=== PATIENT | male | born 1945 | race Caucasian/White ===

== ENCOUNTER 2020-12-25 13:28 | Inpatient (IN) | payer MEDICARE, MEDICAID, SELFPAY ==
--- NOTE | ~2020-12-25 | XR_ITS ---
EXAMINATION: XR CHEST CLINICAL INFORMATION: Syncope COMPARISON: Previous chest x-ray December 2018 TECHNIQUE: 2 views of the chest were obtained. FINDINGS: The cardiac and mediastinal contours are stable. The lung volumes are low. The lungs are clear. There is no pleural effusion or pneumothorax. There are degenerative changes of the spine. Distended bowel below the diaphragm is noted. XR/XR chest 2V IMPRESSION: Low lung volumes. No evidence for acute disease in the chest.
--- NOTE | ~2020-12-25 | CT_ITS ---
EXAMINATION: CT HEAD WITHOUT CONTRAST CLINICAL INFORMATION: Altered mental status COMPARISON: None TECHNIQUE: Contiguous axial imaging was performed from the skull base to vertex without intravenous administration of contrast. This CT examination was performed using dose optimization techniques as appropriate, variously including the following: *Automated exposure control *Adjustment of mA and/or kV according to patient size (this includes techniques or standardized protocols for targeted exams where dose is matched to indication/reason for exam; i.e. extremities or head) *Use of iterative reconstruction technique DLP: 743 mGy-cm FINDINGS: There is no evidence of acute intracranial hemorrhage or territorial infarction. There is a small lacunar infarction right basal ganglia. No abnormal mass effect or midline shift is seen. Griffith to white matter differentiation is well preserved. No extra-axial fluid collections are identified. There is mild prominence of cerebellar sulci and subarachnoid space and moderate prominence of supratentorial subarachnoid space. There is moderate calcification of anterior falx.. The lateral ventricles are symmetrical in size but slightly enlarged. There is no abnormal attenuation within the brain parenchyma. The osseous structures and soft tissues are normal. The mastoid air cells and visualized portions of the paranasal sinuses are well aerated. CT/CT head/brain wo con IMPRESSION: No acute intracranial process seen. Small lacunar infarction right basal ganglia. Mild cerebral and cerebellar volume loss.
--- NOTE | 2020-12-25 13:36 | ECG_ITS ---
Test Reason : SYNCOPE Blood Pressure : / mmHG Vent. Rate : 076 BPM Atrial Rate : 076 BPM P-R Int : 184 ms QRS Dur : 112 ms QT Int : 384 ms P-R-T Axes : 069 014 059 degrees QTc Int : 432 ms Sinus rhythm with Premature atrial complexes Intra-ventricular conduction delay Nonspecific ST abnormality Abnormal ECG When compared with ECG of 04-JAN-2019 18:59, Premature atrial complexes are now Present Nonspecific ST abnormality is new Referred By: Odalys Walsh Electronically Signed By:DRAGAN GUEVARA MD
--- NOTE | 2020-12-25 13:40 | ED.GENADULT ---
HPI - General Adult General Chief complaint: Syncope Stated complaint: ?STROKE Time Seen by Provider: 12/25/20 13:34 Source: patient and EMS Mode of arrival: EMS Limitations: altered mental status (Baseline dementia) History of Present Illness HPI narrative: 75-year-old male with a past medical history dementia, CVA with left-sided deficits and aphasia, seizure disorder on primidone, chronic Nair, hypertension, hyperlipidemia here after a witnessed episode of unresponsiveness by staff at a local [place] [facility] care facility. Per EMS the patient was sitting down when he was noted to be unresponsive for about 1 minutes. There was no reports of shaking activity. Unknown if incontinent as patient has a chronic Nair. Roused without intervention. EMS noted some garbled speech after arousing but feels that this is now resolved. Patient has dementia and cognitive impairment and is unable to provide any history. FUll code Related Data Home Medications Medication Instructions Recorded Confirmed acetaminophen 325 mg tablet 650 mg PO Q4H PRN 12/25/20 12/25/20 aspirin 81 mg chewable tablet 81 mg PO DAILY 12/25/20 12/25/20 atorvastatin 40 mg tablet 40 mg PO BEDTIME 12/25/20 12/25/20 docusate sodium 100 mg tablet 100 mg PO BID 12/25/20 12/25/20 hydrochlorothiazide 25 mg tablet 25 mg PO DAILY 12/25/20 12/25/20 labetalol 300 mg tablet 300 mg PO TID 12/25/20 12/25/20 lisinopril 40 mg tablet 40 mg PO DAILY 12/25/20 12/25/20 magnesium oxide 400 mg PO DAILY 12/25/20 12/25/20 nifedipine 90 mg tablet,extended 90 mg PO DAILY 12/25/20 12/25/20 release 24 hr potassium chloride 20 mEq 20 meq PO BEDTIME 12/25/20 12/25/20 tablet,extended release sennosides 8.6 mg tablet (senna) 17.2 mg PO BEDTIME 12/25/20 12/25/20 spironolactone 50 mg tablet 50 mg PO DAILY 12/25/20 12/25/20 Allergies Allergy/AdvReac Type Severity Reaction Status Date / Time No Known Allergies Allergy Unverified 12/01/19 19:28 [No Known Allergies*] Review of Systems Review of Systems: Yes all other systems are reviewed and are negative and Unobtainable due to mental status (dementi ) Neurologic: Denies Abnormal speech present [facility], [facility] Past Medical History Attestation statement: The following information was validated with the patient. Source: old records reviewed and nursing notes reviewed Medical History Aphasia BPH (benign prostatic hyperplasia) Dysphagia Epilepsy Hemiparesis Hemiplegia Memory deficit Neuromuscular dysfunction of bladder Unsteady gait Vascular dementia Social History Social History Alcohol intake: unknown Patient Tobacco Use Status: Tobacco use Unknown Use of substances other than those prescribed or required for medical reasons: Unknown Advance Directives: No Advance Directives Information Provided: No Physical Exam Vital Signs: Vital Signs: Last Vital Signs Temp 99.5 F 12/25/20 15:04 Pulse 73 12/25/20 15:04 Resp 21 H 12/25/20 15:04 BP 136/59 L 12/25/20 15:04 Pulse Ox 96 12/25/20 15:04 Body Mass Index 37.8 Const: General: alert Orientation/consciousness: oriented to person and oriented to place Limitations: no limitations HENMT: Head: Yes normal to inspection Ears: hearing grossly normal bilaterally and TM's normal bilaterally General nose exam: Normal external nose present Face and sinus: Yes normal facial exam Mouth: Normal oral and palatal mucosa present Throat: Yes posterior oropharynx normal, Yes tonsils normal and Yes uvula midline Eyes: General: appearance normal, both eyes and all related structures Pupils: Equal, round and reactive pupils present Neck: Neck: Yes normal visual inspection Chest: Chest palpation & inspection: normal inspection of the chest Resp: Effort & Inspection: normal respiratory effort Auscultation: clear to auscultation bilaterally Cardio: Rate: regular rate Rhythm: regular rhythm Peripheral pulses: Peripheral pulses 2+ throughout GI: Inspection: Yes normal to inspection Palpation (GI): Soft to palpation and nontender Auscultation: normal bowel sounds Back/Spine/Pelvis: Thoracic/Lumbar Spine: thoracic and lumbar spine normal to inspection Skin: General skin exam: no rashes or lesions noted Neuro: Other: Speech is clear Patient has 5/5 strength in upper extremities. 3/5 strength lower extremities Sensation is intact General: oriented to person, oriented to place, moves all extremities, normal sensation to monofilament and Unable to assess gait (pt non ambulatory at baseline-WC bound ) Cranial nerves: Yes CN's II-XII intact bilaterally, Yes Equal, round and reactive pupils present, Yes Bilaterally intact EOM present, Yes Nystagmus not present, Yes Normal facial strength present and Yes Midline tongue present Speech: No Abnormal speech present Gait exam (Neuro): Unable to assess gait (pt non ambulatory at baseline-WC bound ) Motor exam (neuro): 5/5 motor strength present throughout Sensory Exam: Normal double simultaneous stimulation for sensation Extrem: General: Yes normal to inspection Course Course Course Narrative: 75-year-old male coming from a [place] [facility] [place] after a witnessed unresponsive episode approximately 1 minute long. On arrival to the emergency department the patient was alert. EMS initially thought the patient had some garbled speech but the patient tells me his speech feels at his baseline. He does have underlying history of CVA with left-sided deficits and aphasia as well as some dementia. He is unable to provide a clear history as to any symptoms prior to this episode. He does have no complaints now. Will check labs, CT head, chest x-ray, EKG, urine 1520-labs show mild hyponatremia which is new from previous. Likely medication related as patient is on Aldactone, lisinopril and hydrochlorothiazide. No reports of recent volume loss. Plan for gentle hydration. Add on serum oz, urinalysis. Patient will need admission 1615-CT head, chest x-ray, urine negative. Will admit for syncope workup/hyponatremia. Call out to medicine discussed Mildly elevated troponin. No EKG changes or chest pain. Plan for repeat 3 hour troponin. Less likely ACS.. 1630-Spoke to Dr Nolan who admitted patient. Medical Decision Making [facility] Narrative Medical decision making narrative: Syncope, seizure-less likely with no postictal state, normal lactic, ICH versus CVA-less likely with normal CT head and neuro status at baseline, underlying infection ACS less likely with no ekg changes, no chest pain Medical Records Medical records reviewed: Yes I reviewed the patient's medical records. Lab Data Lab results reviewed: Yes I reviewed the patient's lab results. Result diagrams: 12/25/20 14:24 12/25/20 14:24 Labs: Lab Results 12/25/20 12/25/20 12/25/20 Range/Units 14:14 14:24 14:24 WBC 9.1 (4.8-10.8) X10*3/uL RBC 3.61 L (4.60-5.80) X10*6/uL Hgb 11.1 L (14.0-18.0) g/dl Hct 31.8 L (42-52) % MCV 88.1 (80-98) fL MCH 30.7 (27.0-33.0) pg MCHC 34.9 (31.0-36.0) g/dl RDW 13.3 (11.0-16.0) % Plt Count 135 L (160-400) X10*3/uL MPV 8.7 L (9.4-12.4) fL Immature Gran % (Auto) 0.3 (0.0-0.4) % Neut % (Auto) 86.2 H (45-73) % Lymph % (Auto) 3.3 L (20-40) % Becker % (Auto) 9.7 (2-11) % Eos % (Auto) 0.4 (0-4) % Baso % (Auto) 0.1 (0-2) % Lymph # (Auto) 0.3 L (1.2-4.9) X10*3/uL Becker # (Auto) 0.9 (0.1-1.2) X10*3/uL Eos # (Auto) 0.0 (0.0-0.4) X10*3/uL Baso # (Auto) 0.0 (0.0-0.2) X10*3/uL Abs Immat Gran (auto) 0.03 (0.00-0.03) X10*3/uL Absolute Neuts (auto) 7.8 (2.0-8.3) X10*3/uL Absolute Nucleated RBC 0.000 (0.0-0.012) X10*3/uL Nucleated RBC % (auto) 0.0 (0.0-0.2) /100WBC Sodium 124 L (135-145) mmol/L Potassium 4.2 (3.3-5.1) mmol/L Chloride 90 L (96-108) mmol/L Carbon Dioxide 24 (22-29) mmol/L Anion Gap 14 (12-20) BUN 20 H (9-16) mg/dL Creatinine 1.07 (0.5-1.4) mg/dL Estim Creat Clear Calc 69.2 Estimated GFR > 60 POC Glucose (60-115) mg/dL Random Glucose 111 (60-115) mg/dL Osmolality (281-305) mosm/kg Lactic Acid (0.5-2.0) mmol/L Calcium 8.8 (8.4-10.2) mg/dL Magnesium 2.0 (1.6-2.6) mg/dL Total Bilirubin 0.4 (0.0-1.0) mg/dL Direct Bilirubin 0.2 (0.0-0.5) mg/dL AST 14 (5-37) U/L ALT 11 (0-40) U/L Alkaline Phosphatase 86 (39-117) U/L Troponin I High Sens (<3.5-35.0) ng/L Total Protein 6.7 (6.5-8.0) g/dL Albumin 3.9 (3.5-5.0) g/dL Urine Color Urine Appearance Urine pH (5.0-8.0) Ur Specific [place] (1.005-1.025) Urine Protein (NEG-TRACE) MG/DL Urine Glucose (UA) (NEG) MG/DL Urine Ketones (NEG) MG/DL Urine Blood (NEG) Urine Nitrite (NEG) Ur Leukocyte Esterase (NEG) Urine RBC (0) /HPF Urine WBC (0-4) /HPF Ur Squamous Epith Cells /LPF Calcium Oxalate Crystal /LPF Uric Acid Crystals /LPF Amorphous Sediment /LPF Urine Bacteria /LPF Urine Mucus /LPF Urine Osmolality (373-1093) mosm/kg Ur Random Sodium mmol/L Urine Creatinine mg/dL COVID-19 (LUIS) Negative (Negative) COVID-19 Clin Com See Note 12/25/20 12/25/20 12/25/20 Range/Units 14:24 14:24 14:24 WBC (4.8-10.8) X10*3/uL RBC (4.60-5.80) X10*6/uL Hgb (14.0-18.0) g/dl Hct (42-52) % MCV (80-98) fL MCH (27.0-33.0) pg MCHC (31.0-36.0) g/dl RDW (11.0-16.0) % Plt Count (160-400) X10*3/uL MPV (9.4-12.4) fL Immature Gran % (Auto) (0.0-0.4) % Neut % (Auto) (45-73) % Lymph % (Auto) (20-40) % Becker % (Auto) (2-11) % Eos % (Auto) (0-4) % Baso % (Auto) (0-2) % Lymph # (Auto) (1.2-4.9) X10*3/uL Becker # (Auto) (0.1-1.2) X10*3/uL Eos # (Auto) (0.0-0.4) X10*3/uL Baso # (Auto) (0.0-0.2) X10*3/uL Abs Immat Gran (auto) (0.00-0.03) X10*3/uL Absolute Neuts (auto) (2.0-8.3) X10*3/uL Absolute Nucleated RBC (0.0-0.012) X10*3/uL Nucleated RBC % (auto) (0.0-0.2) /100WBC Sodium (135-145) mmol/L Potassium (3.3-5.1) mmol/L Chloride (96-108) mmol/L Carbon Dioxide (22-29) mmol/L Anion Gap (12-20) BUN (9-16) mg/dL Creatinine (0.5-1.4) mg/dL Estim Creat Clear Calc Estimated GFR POC Glucose (60-115) mg/dL Random Glucose (60-115) mg/dL Osmolality 267 L (281-305) mosm/kg Lactic Acid 0.9 (0.5-2.0) mmol/L Calcium (8.4-10.2) mg/dL Magnesium (1.6-2.6) mg/dL Total Bilirubin (0.0-1.0) mg/dL Direct Bilirubin (0.0-0.5) mg/dL AST (5-37) U/L ALT (0-40) U/L Alkaline Phosphatase (39-117) U/L Troponin I High Sens 37.7 H* (<3.5-35.0) ng/L Total Protein (6.5-8.0) g/dL Albumin (3.5-5.0) g/dL Urine Color Urine Appearance Urine pH (5.0-8.0) Ur Specific [place] (1.005-1.025) Urine Protein (NEG-TRACE) MG/DL Urine Glucose (UA) (NEG) MG/DL Urine Ketones (NEG) MG/DL Urine Blood (NEG) Urine Nitrite (NEG) Ur Leukocyte Esterase (NEG) Urine RBC (0) /HPF Urine WBC (0-4) /HPF Ur Squamous Epith Cells /LPF Calcium Oxalate Crystal /LPF Uric Acid Crystals /LPF Amorphous Sediment /LPF Urine Bacteria /LPF Urine Mucus /LPF Urine Osmolality (373-1093) mosm/kg Ur Random Sodium mmol/L Urine Creatinine mg/dL COVID-19 (LUIS) (Negative) COVID-19 Clin Com 12/25/20 12/25/20 12/25/20 Range/Units 15:32 15:41 15:41 WBC (4.8-10.8) X10*3/uL RBC (4.60-5.80) X10*6/uL Hgb (14.0-18.0) g/dl Hct (42-52) % MCV (80-98) fL MCH (27.0-33.0) pg MCHC (31.0-36.0) g/dl RDW (11.0-16.0) % Plt Count (160-400) X10*3/uL MPV (9.4-12.4) fL Immature Gran % (Auto) (0.0-0.4) % Neut % (Auto) (45-73) % Lymph % (Auto) (20-40) % Becker % (Auto) (2-11) % Eos % (Auto) (0-4) % Baso % (Auto) (0-2) % Lymph # (Auto) (1.2-4.9) X10*3/uL Becker # (Auto) (0.1-1.2) X10*3/uL Eos # (Auto) (0.0-0.4) X10*3/uL Baso # (Auto) (0.0-0.2) X10*3/uL Abs Immat Gran (auto) (0.00-0.03) X10*3/uL Absolute Neuts (auto) (2.0-8.3) X10*3/uL Absolute Nucleated RBC (0.0-0.012) X10*3/uL Nucleated RBC % (auto) (0.0-0.2) /100WBC Sodium (135-145) mmol/L Potassium (3.3-5.1) mmol/L Chloride (96-108) mmol/L Carbon Dioxide (22-29) mmol/L Anion Gap (12-20) BUN (9-16) mg/dL Creatinine (0.5-1.4) mg/dL Estim Creat Clear Calc Estimated GFR POC Glucose 107 (60-115) mg/dL Random Glucose (60-115) mg/dL Osmolality (281-305) mosm/kg Lactic Acid (0.5-2.0) mmol/L Calcium (8.4-10.2) mg/dL Magnesium (1.6-2.6) mg/dL Total Bilirubin (0.0-1.0) mg/dL Direct Bilirubin (0.0-0.5) mg/dL AST (5-37) U/L ALT (0-40) U/L Alkaline Phosphatase (39-117) U/L Troponin I High Sens (<3.5-35.0) ng/L Total Protein (6.5-8.0) g/dL Albumin (3.5-5.0) g/dL Urine Color DK YELLOW Urine Appearance CLOUDY Urine pH 8.5 H (5.0-8.0) Ur Specific [place] 1.010 (1.005-1.025) Urine Protein TRACE (NEG-TRACE) MG/DL Urine Glucose (UA) NEG (NEG) MG/DL Urine Ketones NEG (NEG) MG/DL Urine Blood NEG (NEG) Urine Nitrite NEG (NEG) Ur Leukocyte Esterase 3+ H (NEG) Urine RBC 0 (0) /HPF Urine WBC 10-14 H (0-4) /HPF Ur Squamous Epith Cells TRACE /LPF Calcium Oxalate Crystal 1+ /LPF Uric Acid Crystals 2+ /LPF Amorphous Sediment 3+ /LPF Urine Bacteria 3+ /LPF Urine Mucus TRACE /LPF Urine Osmolality (373-1093) mosm/kg Ur Random Sodium < 20.0 mmol/L Urine Creatinine 55.56 mg/dL COVID-19 (LUIS) (Negative) COVID-19 Clin Com 12/25/20 Range/Units 15:41 WBC (4.8-10.8) X10*3/uL RBC (4.60-5.80) X10*6/uL Hgb (14.0-18.0) g/dl Hct (42-52) % MCV (80-98) fL MCH (27.0-33.0) pg MCHC (31.0-36.0) g/dl RDW (11.0-16.0) % Plt Count (160-400) X10*3/uL MPV (9.4-12.4) fL Immature Gran % (Auto) (0.0-0.4) % Neut % (Auto) (45-73) % Lymph % (Auto) (20-40) % Becker % (Auto) (2-11) % Eos % (Auto) (0-4) % Baso % (Auto) (0-2) % Lymph # (Auto) (1.2-4.9) X10*3/uL Becker # (Auto) (0.1-1.2) X10*3/uL Eos # (Auto) (0.0-0.4) X10*3/uL Baso # (Auto) (0.0-0.2) X10*3/uL Abs Immat Gran (auto) (0.00-0.03) X10*3/uL Absolute Neuts (auto) (2.0-8.3) X10*3/uL Absolute Nucleated RBC (0.0-0.012) X10*3/uL Nucleated RBC % (auto) (0.0-0.2) /100WBC Sodium (135-145) mmol/L Potassium (3.3-5.1) mmol/L Chloride (96-108) mmol/L Carbon Dioxide (22-29) mmol/L Anion Gap (12-20) BUN (9-16) mg/dL Creatinine (0.5-1.4) mg/dL Estim Creat Clear Calc Estimated GFR POC Glucose (60-115) mg/dL Random Glucose (60-115) mg/dL Osmolality (281-305) mosm/kg Lactic Acid (0.5-2.0) mmol/L Calcium (8.4-10.2) mg/dL Magnesium (1.6-2.6) mg/dL Total Bilirubin (0.0-1.0) mg/dL Direct Bilirubin (0.0-0.5) mg/dL AST (5-37) U/L ALT (0-40) U/L Alkaline Phosphatase (39-117) U/L Troponin I High Sens (<3.5-35.0) ng/L Total Protein (6.5-8.0) g/dL Albumin (3.5-5.0) g/dL Urine Color Urine Appearance Urine pH (5.0-8.0) Ur Specific [place] (1.005-1.025) Urine Protein (NEG-TRACE) MG/DL Urine Glucose (UA) (NEG) MG/DL Urine Ketones (NEG) MG/DL Urine Blood (NEG) Urine Nitrite (NEG) Ur Leukocyte Esterase (NEG) Urine RBC (0) /HPF Urine WBC (0-4) /HPF Ur Squamous Epith Cells /LPF Calcium Oxalate Crystal /LPF Uric Acid Crystals /LPF Amorphous Sediment /LPF Urine Bacteria /LPF Urine Mucus /LPF Urine Osmolality 421 (373-1093) mosm/kg Ur Random Sodium mmol/L Urine Creatinine mg/dL COVID-19 (LUIS) (Negative) COVID-19 Clin Com Imaging Data CT scan - head: Attestation: I personally reviewed and interpreted this imaging study as follows: Radiologist's impression: FINDINGS: There is no evidence of acute intracranial hemorrhage or territorial infarction. There is a small lacunar infarction right basal ganglia. No abnormal mass effect or midline shift is seen. Griffith to white matter differentiation is well preserved. No extra-axial fluid collections are identified. There is mild prominence of cerebellar sulci and subarachnoid space and moderate prominence of supratentorial subarachnoid space. There is moderate calcification of anterior falx.. The lateral ventricles are symmetrical in size but slightly enlarged. There is no abnormal attenuation within the brain parenchyma. The osseous structures and soft tissues are normal. The mastoid air cells and visualized portions of the paranasal sinuses are well aerated. ? CT/CT head/brain wo con IMPRESSION: No acute intracranial process seen. ? Small lacunar infarction right basal ganglia. ? Mild cerebral and cerebellar? volume loss. Chest x-ray: Attestation: I personally reviewed and interpreted this imaging study as follows: Radiologist's impression: FINDINGS: The cardiac and mediastinal contours are stable. The lung volumes are low. The lungs are clear. There is no pleural effusion or pneumothorax. There are degenerative changes of the spine. Distended bowel below the diaphragm is noted. XR/XR chest 2V IMPRESSION: Low lung volumes. No evidence for acute disease in the chest. ECG Data Attestation: I personally reviewed and interpreted this ECG as follows: Interpretation: Sinus rhythm with a rate of 76, normal AR, normal QRS, normal QT Discharge Plan Discharge Clinical Impression: Hyponatremia, Syncope Patient Disposition: Admitted As Inpatient
[2020-12-25 13:46] VITALS: BP 136/52; BP 156/68; PULSE 73; PULSE 74; RESP 18; TEMP 37.3; O2SAT 95; O2SAT 98; BMI 37.8
[2020-12-25 14:25] VITALS: O2SAT 95
--- NOTE | 2020-12-25 14:30 | PHA.MEDREC ---
Pharmacy Consult ? Medication Reconciliation Pharmacy has completed the medication reconciliation. Patient came from [facility] with a medication list. Ruth Cueto, ArisD
[2020-12-25 14:31] LABS: MANUAL DIFF FLAG NO
[2020-12-25 14:34] LABS: Basophils Percent Auto 0.1 % (0-2); Eosinophils Percent Auto 0.4 % (0-4); Hematocrit 31.8 % (42-52); Hemoglobin 11.1 g/dl (14.0-18.0); Imm Gran Abs Auto 0.03 X10*3/uL (0.00-0.03); Imm Gran Pct Auto 0.3 % (0.0-0.4); Lymphocytes Absolute Auto 0.3 X10*3/uL (1.2-4.9); Lymphocytes Percent Auto 3.3 % (20-40); Mean Corpuscular HGB Conc 34.9 g/dl (31.0-36.0); Mean Corpuscular Hemoglobin 30.7 pg (27.0-33.0); Mean Corpuscular Volume 88.1 fL (80-98); Mean Platelet Volume 8.7 fL (9.4-12.4); Monocytes Absolute Auto 0.9 X10*3/uL (0.1-1.2); Monocytes Percent Auto 9.7 % (2-11); Neutrophils Absolute Auto 7.8 X10*3/uL (2.0-8.3); Neutrophils Percent Auto 86.2 % (45-73); Platelet Count 135 X10*3/uL (160-400); Red Blood Count 3.61 X10*6/uL (4.60-5.80); Red Cell Distribution Width 13.3 % (11.0-16.0); White Blood Count 9.1 X10*3/uL (4.8-10.8)
[2020-12-25 14:45] LABS: Lactic Acid 0.9 mmol/L (0.5-2.0)
[2020-12-25 14:53] LABS: Alanine Aminotransferase 11 U/L (0-40); Albumin Level 3.9 g/dL (3.5-5.0); Alkaline Phosphatase 86 U/L (39-117); Aspartate Amino Transferase 14 U/L (5-37); Bilirubin Direct 0.2 mg/dL (0.0-0.5); Bilirubin Total 0.4 mg/dL (0.0-1.0); Blood Urea Nitrogen 20 mg/dL (9-16); Calcium 8.8 mg/dL (8.4-10.2); Creatinine Clr Calc Pharmacy 69.2; Estimated Glomerular Filt Rate > 60; Glucose Random 111 mg/dL (60-115); Total Protein 6.7 g/dL (6.5-8.0)
[2020-12-25 14:55] LABS: Troponin-I High Sensitivity 37.7 ng/L (<3.5-35.0)
[2020-12-25 15:00] LABS: COVID-19 Test Negative (Negative)
[2020-12-25 15:04] VITALS: BP 136/59; PULSE 73; RESP 21; TEMP 37.5; O2SAT 96
[2020-12-25 15:06] LABS: Anion Gap 14 (12-20); Carbon Dioxide 24 mmol/L (22-29); Chloride 90 mmol/L (96-108); Potassium 4.2 mmol/L (3.3-5.1); Sodium 124 mmol/L (135-145)
[2020-12-25] MEDS: 0.9 % Sodium Chloride 500 ML 999 ML IV (15:26)
[2020-12-25 15:37] LABS: Glucose, Whole Blood 107 mg/dL (60-115)
[2020-12-25 15:48] LABS: Appearance Urine CLOUDY; Color Urine DK YELLOW; Glucose Urine UA NEG (NEG); Leukocyte Esterase Urine 3+ (NEG); Nitrite Urine NEG (NEG); PH 8.5 (5.0-8.0); UACC Culture Trigger YES; Urine Blood NEG (NEG); Urine Ketones NEG (NEG); Urine Protein TRACE MG/DL (NEG-TRACE)
[2020-12-25 15:59] LABS: Osmolality, Serum 267 mosm/kg (281-305)
[2020-12-25 16:06] LABS: Amorphous Sediment Urine 3+ /LPF; Calcium Oxalate Crystals Urine 1+ /LPF; Uric Acid Crystals Urine 2+ /LPF
[2020-12-25 16:07] LABS: Bacteria Urine 3+ /LPF; Mucus Urine TRACE /LPF; Squamous Epithelial Cell Urine TRACE /LPF
[2020-12-25 16:08] LABS: RBC Urine 0 /HPF (0)
[2020-12-25 16:12] LABS: Creatinine Urine 55.56 mg/dL; Sodium Urine Random < 20.0 mmol/L
[2020-12-25 16:23] LABS: Osmolality Urine 421 mosm/kg (373-1093)
--- NOTE | 2020-12-25 16:52 | PM.IMHP ---
History of Present Illness Date of Service: 12/25/20 75-year-old male with a past medical history dementia, CVA with left-sided deficits and aphasia, seizure disorder on primidone, chronic Nair, hypertension, hyperlipidemia here after a witnessed episode of unresponsiveness by staff at a local longterm.? Per EMS the patient was sitting down when he was noted to be unresponsive for about 1 minutes.? There was no reports of shaking activity.? Unknown if incontinent as patient has a chronic Nair.? Roused without intervention.? EMS noted some garbled speech after arousing but feels that this is now resolved. In the ER found to be hyponatremic. Will be admitted for treatment the same and monitor Review of Systems Review of Systems: Poor historian but denies chest pain Denies shortness of breath Denies nausea vomiting diarrhea PMFSH Medical History Aphasia BPH (benign prostatic hyperplasia) Dysphagia Epilepsy Hemiparesis Hemiplegia Memory deficit Neuromuscular dysfunction of bladder Unsteady gait Vascular dementia Pertinent family history: . Social History Alcohol intake: unknown Patient Tobacco Use Status: Tobacco use Unknown Use of substances other than those prescribed or required for medical reasons: Unknown Advance Directives: No Advance Directives Information Provided: No Meds Allergies Allergy/AdvReac Type Severity Reaction Status Date / Time No Known Allergies Allergy Unverified 12/01/19 19:28 [No Known Allergies*] Active Medications: Current Medications Acetaminophen (Acetaminophen 325 Mg Tablet) 650 mg PO Q4H PRN PRN Reason: PAIN/FEVER Aspirin (Aspirin 81 Mg Tab.Chew) 81 mg PO DAILY ANA Atorvastatin Calcium (Atorvastatin Calcium 40 Mg Tablet) 40 mg PO BEDTIME ANA Lisinopril (Lisinopril 40 Mg Tablet) 40 mg PO DAILY ANA; Protocol Nifedipine (Nifedipine Er 90 Mg Tab.Er.24) 90 mg PO DAILY ANA; Protocol Non-Formulary Medication (Labetalol) 300 mg PO TID ANA Ondansetron HCl (Ondansetron Hcl 4 Mg/2 Ml Vial) 4 mg IVPUSH Q8H PRN PRN Reason: Nausea and Vomiting Pharmacy Consult (Consult Rx Perform Med Rec) 1 each MISCELLANE ONCE PRN PRN Reason: Consult order Sodium Chloride (0.9 % Sodium Chloride Flush 3 Ml Syringe) 3 ml IVFLUSH QSHIFT [facility] Home Medications Medication Instructions Recorded Confirmed Last Taken Type acetaminophen 325 mg tablet 650 mg PO Q4H PRN 12/25/20 12/25/20 Unknown History aspirin 81 mg chewable tablet 81 mg PO DAILY 12/25/20 12/25/20 Unknown History atorvastatin 40 mg tablet 40 mg PO BEDTIME 12/25/20 12/25/20 Unknown History docusate sodium 100 mg tablet 100 mg PO BID 12/25/20 12/25/20 Unknown History hydrochlorothiazide 25 mg tablet 25 mg PO DAILY 12/25/20 12/25/20 Unknown History labetalol 300 mg tablet 300 mg PO TID 12/25/20 12/25/20 Unknown History lisinopril 40 mg tablet 40 mg PO DAILY 12/25/20 12/25/20 Unknown History magnesium oxide 400 mg PO DAILY 12/25/20 12/25/20 Unknown History nifedipine 90 mg tablet,extended 90 mg PO DAILY 12/25/20 12/25/20 Unknown History release 24 hr potassium chloride 20 mEq 20 meq PO BEDTIME 12/25/20 12/25/20 Unknown History tablet,extended release sennosides 8.6 mg tablet (senna) 17.2 mg PO BEDTIME 12/25/20 12/25/20 Unknown History spironolactone 50 mg tablet 50 mg PO DAILY 12/25/20 12/25/20 Unknown History Physical Exam Vital Signs and Narrative: Vital Signs: Last Vital Signs Temp 99.5 F 12/25/20 15:04 Pulse 73 12/25/20 15:04 Resp 21 H 12/25/20 15:04 BP 136/59 L 12/25/20 15:04 Pulse Ox 96 12/25/20 15:04 Body Mass Index 37.8 Const: Other: Awake alert confused. Will answer in 1-2 word responses. No acute distress HENMT: Other: Membranes dry oropharynx clear Resp: Other: Clear to auscultation all quiñones without rales rubs or rhonchi Cardio: Other: No S4; positive S1-S2; no S3-S4 murmurs rubs gallops GI: Other: Soft nontender nondistended with normoactive bowel sounds. There is no rebound tenderness Neuro: Other: Left hemiparesis; moves right side with purpose Extrem: Other: Bilateral edema Results Labs CBC and Chem 7: 12/25/20 14:24 12/25/20 14:24 Labs: Laboratory Results - last 24 hr 12/25/20 12/25/20 12/25/20 14:14 14:24 14:24 MCV 88.1 MCH 30.7 MCHC 34.9 RDW 13.3 Plt Count 135 L MPV 8.7 L Immature Gran % (Auto) 0.3 Neut % (Auto) 86.2 H Lymph % (Auto) 3.3 L [place] % (Auto) 9.7 Eos % (Auto) 0.4 Baso % (Auto) 0.1 Lymph # (Auto) 0.3 L [place] # (Auto) 0.9 Eos # (Auto) 0.0 Baso # (Auto) 0.0 Abs Immat Gran (auto) 0.03 Absolute Neuts (auto) 7.8 Absolute Nucleated RBC 0.000 Nucleated RBC % (auto) 0.0 Anion Gap 14 Estim Creat Clear Calc 69.2 Estimated GFR > 60 POC Glucose Random Glucose 111 Osmolality Lactic Acid Calcium 8.8 Magnesium 2.0 Total Bilirubin 0.4 Direct Bilirubin 0.2 AST 14 ALT 11 Alkaline Phosphatase 86 Troponin I High Sens Total Protein 6.7 Albumin 3.9 Urine Color Urine Appearance Urine pH Ur Specific [place] Urine Protein Urine Glucose (UA) Urine Ketones Urine Blood Urine Nitrite Ur Leukocyte Esterase Urine RBC Urine WBC Ur Squamous Epith Cells Calcium Oxalate Crystal Uric Acid Crystals Amorphous Sediment Urine Bacteria Urine Mucus Urine Osmolality Ur Random Sodium Urine Creatinine COVID-19 (LUIS) Negative COVID-19 Clin Com See Note 12/25/20 12/25/20 12/25/20 14:24 14:24 14:24 MCV MCH MCHC RDW Plt Count MPV Immature Gran % (Auto) Neut % (Auto) Lymph % (Auto) [place] % (Auto) Eos % (Auto) Baso % (Auto) Lymph # (Auto) [place] # (Auto) Eos # (Auto) Baso # (Auto) Abs Immat Gran (auto) Absolute Neuts (auto) Absolute Nucleated RBC Nucleated RBC % (auto) Anion Gap Estim Creat Clear Calc Estimated GFR POC Glucose Random Glucose Osmolality 267 L Lactic Acid 0.9 Calcium Magnesium Total Bilirubin Direct Bilirubin AST ALT Alkaline Phosphatase Troponin I High Sens 37.7 H* Total Protein Albumin Urine Color Urine Appearance Urine pH Ur Specific [place] Urine Protein Urine Glucose (UA) Urine Ketones Urine Blood Urine Nitrite Ur Leukocyte Esterase Urine RBC Urine WBC Ur Squamous Epith Cells Calcium Oxalate Crystal Uric Acid Crystals Amorphous Sediment Urine Bacteria Urine Mucus Urine Osmolality Ur Random Sodium Urine Creatinine COVID-19 (LUIS) COVID-19 [email or web address] Com 12/25/20 12/25/20 12/25/20 15:32 15:41 15:41 MCV MCH MCHC RDW Plt Count MPV Immature Gran % (Auto) Neut % (Auto) Lymph % (Auto) [place] % (Auto) Eos % (Auto) Baso % (Auto) Lymph # (Auto) [place] # (Auto) Eos # (Auto) Baso # (Auto) Abs Immat Gran (auto) Absolute Neuts (auto) Absolute Nucleated RBC Nucleated RBC % (auto) Anion Gap Estim Creat Clear Calc Estimated GFR POC Glucose 107 Random Glucose Osmolality Lactic Acid Calcium Magnesium Total Bilirubin Direct Bilirubin AST ALT Alkaline Phosphatase Troponin I High Sens Total Protein Albumin Urine Color DK YELLOW Urine Appearance CLOUDY Urine pH 8.5 H Ur Specific [place] 1.010 Urine Protein TRACE Urine Glucose (UA) NEG Urine Ketones NEG Urine Blood NEG Urine Nitrite NEG Ur Leukocyte Esterase 3+ H Urine RBC 0 Urine WBC 10-14 H Ur Squamous Epith Cells TRACE Calcium Oxalate Crystal 1+ Uric Acid Crystals 2+ Amorphous Sediment 3+ Urine Bacteria 3+ Urine Mucus TRACE Urine Osmolality Ur Random Sodium < 20.0 Urine Creatinine 55.56 COVID-19 (LUIS) COVID-19 [email or web address] Com 12/25/20 15:41 MCV MCH MCHC RDW Plt Count MPV Immature Gran % (Auto) Neut % (Auto) Lymph % (Auto) [place] % (Auto) Eos % (Auto) Baso % (Auto) Lymph # (Auto) [place] # (Auto) Eos # (Auto) Baso # (Auto) Abs Immat Gran (auto) Absolute Neuts (auto) Absolute Nucleated RBC Nucleated RBC % (auto) Anion Gap Estim Creat Clear Calc Estimated GFR POC Glucose Random Glucose Osmolality Lactic Acid Calcium Magnesium Total Bilirubin Direct Bilirubin AST ALT Alkaline Phosphatase Troponin I High Sens Total Protein Albumin Urine Color Urine Appearance Urine pH Ur Specific [place] Urine Protein Urine Glucose (UA) Urine Ketones Urine Blood Urine Nitrite Ur Leukocyte Esterase Urine RBC Urine WBC Ur Squamous Epith Cells Calcium Oxalate Crystal Uric Acid Crystals Amorphous Sediment Urine Bacteria Urine Mucus Urine Osmolality 421 Ur Random Sodium Urine Creatinine COVID-19 (LUIS) COVID-19 [email or web address] Com Imaging Radiologist's Impressions: Impressions Head CT 12/25/20 13:34 IMPRESSION: No acute intracranial process seen. Small lacunar infarction right basal ganglia. Mild cerebral and cerebellar volume loss. Chest X-Ray 12/25/20 13:36 IMPRESSION: Low lung volumes. No evidence for acute disease in the chest. Assessment and Plan (1) Hyponatremia: Status: Acute (2) Syncope: Status: Acute (3) Hypertension: Status: Acute (4) Dementia: Status: Acute 75-year-old male with history of CVA with left hemiplegia, dementia, hypertension on thiazide and Aldactone presents with questionable syncopal episode from longterm. Found to be unresponsive for approximately 1 minute without obvious seizure activities. In the emergency room CT scan of the head was negative for acute pathology; sodium was 124 1. Hyponatremia Will hold hydrochlorothiazide and Aldactone. Gentle IV fluids; half normal saline at 100 an hour overnight Check urine sodium Electrolytes in a.m. 2. Syncope; unclear etiology Admit to telemetry .... Follow clinically. Doubt clear syncope 3. Hypertension Continue outpatient therapies in the absence of diuretics 4. Hyperlipidemia Continue statin outpatient dosing 5. Full code DVT prophylaxis: venodyne boots Quality Stroke Does the patient have a stroke diagnosis?: No VTE Prior VTE?: No VTE Risk Level:: Medical - moderate - high VTE Device Contraindication: N/A - Device Ordered VTE Drug Contraindication: Treatment Not Indicated
[2020-12-25 17:51] VITALS: BP 138/62; PULSE 75; RESP 20; TEMP 37.4; O2SAT 96
[2020-12-25 18:20] LABS: Troponin-I High Sensitivity 34.9 ng/L (<3.5-35.0)
[2020-12-25] MEDS: Dextrose 5 % and 0.45 % NaCl 1,000 ML 80 ML IVCONT (18:40)
[2020-12-25 20:31] VITALS: BP 189/77; PULSE 83; RESP 20; TEMP 38.3; O2SAT 97
[2020-12-25] MEDS: Acetaminophen 325 MG TABLET 650 MG PO (20:35)
--- NOTE | 2020-12-25 20:50 | PC.NURSE ---
Pt alert and confused, baseline for patient mental status. IV intact infusing fluids at this time. Pt febrile, Tylenol given. Pt remains on room air. BP elevated. Pt denies pain. Nair present and intact draining concentrated yellow urine. BM noted. Pt resting in stretcher at this time, will continue to monitor.
[2020-12-25 21:19] VITALS: BP 179/77; PULSE 74
[2020-12-25] MEDS: Labetalol HCL 200 MG TABLET 300 MG PO (21:19)
[2020-12-25] MEDS: Atorvastatin Calcium 40 MG TABLET PO (21:19)
[2020-12-26 02:01] VITALS: BP 161/70; PULSE 79; RESP 15; TEMP 37.7; O2SAT 98
--- NOTE | 2020-12-26 02:21 | PC.NURSE ---
Pt alert and confused, remains at baseline. Pt denies pain. Pt tolerated PO meds well. Pt remains room air. Pt turned and re-positioned. Pt has 1 loose BM this shift. Chronic Nair remains in place draining tea colored urine and noted to be odorous. Report given to SIDNEY Alatorre.
[2020-12-26 02:57] VITALS: BMI 37.8
[2020-12-26 03:04] VITALS: BP 159/70; PULSE 72; RESP 18; TEMP 36.6; O2SAT 99
[2020-12-26 05:42] LABS: MANUAL DIFF FLAG NO
[2020-12-26 05:46] LABS: Basophils Percent Auto 0.1 % (0-2); Eosinophils Absolute Auto 0.1 X10*3/uL (0.0-0.4); Eosinophils Percent Auto 0.9 % (0-4); Hematocrit 30.2 % (42-52); Hemoglobin 10.4 g/dl (14.0-18.0); Imm Gran Abs Auto 0.02 X10*3/uL (0.00-0.03); Imm Gran Pct Auto 0.3 % (0.0-0.4); Lymphocytes Absolute Auto 0.2 X10*3/uL (1.2-4.9); Lymphocytes Percent Auto 3.1 % (20-40); Mean Corpuscular HGB Conc 34.4 g/dl (31.0-36.0); Mean Corpuscular Hemoglobin 30.2 pg (27.0-33.0); Mean Corpuscular Volume 87.8 fL (80-98); Mean Platelet Volume 8.9 fL (9.4-12.4); Monocytes Absolute Auto 0.8 X10*3/uL (0.1-1.2); Neutrophils Absolute Auto 6.4 X10*3/uL (2.0-8.3); Neutrophils Percent Auto 84.6 % (45-73); Platelet Count 135 X10*3/uL (160-400); Red Blood Count 3.44 X10*6/uL (4.60-5.80); Red Cell Distribution Width 13.6 % (11.0-16.0); White Blood Count 7.5 X10*3/uL (4.8-10.8)
[2020-12-26 06:05] LABS: Anion Gap 13 (12-20); Blood Urea Nitrogen 22 mg/dL (9-16); Carbon Dioxide 24 mmol/L (22-29); Chloride 92 mmol/L (96-108); Creatinine Clr Calc Pharmacy 73.3; Estimated Glomerular Filt Rate > 60; Glucose Random 131 mg/dL (60-115); Sodium 125 mmol/L (135-145)
[2020-12-26 07:14] VITALS: BP 190/82; PULSE 74; RESP 16; TEMP 37.1; O2SAT 96
[2020-12-26] MEDS: Aspirin 81 MG TAB.CHEW PO (07:32)
[2020-12-26] MEDS: Labetalol HCL 200 MG TABLET 300 MG PO ×3 (07:32→21:57)
[2020-12-26] MEDS: NIFEdipine ER 90 MG TAB.ER.24 PO (07:32)
[2020-12-26] MEDS: lisinopriL 40 MG TABLET PO (07:33)
--- NOTE | 2020-12-26 10:18 | P.CDIC_ITS ---
CDI Concurrent Query Documentation Clarification: PHYSICIAN'S DOCUMENTATION REQUEST Date of Query: 12/26/20 1018 Patient Name: Mario Onofre Admit Date: 12/25/20 Dear Doctor, A review of the medical record indicates additional documentation may be needed. Please review below and update the documentation accordingly. Clinical Indicators: The following diagnoses or signs and symptoms were noted in the patient record: Lab Tests: Urine Risk Factors/Clinical Indicators/Treatments Chronic zamudio catheter nursing noted odorous tea colored urine Cloudy Leukocyte 3+ Urine WBC 10-14 Bacteria 3+ Wheelchair bound Based on the above, could you clarify in the Progress Notes the appropriate diagnosis, if significant, that supports the above abnormalities and additional evaluation, monitoring, and/or treatment rendered: Urinary tract infection (treat/rule out) Urinary tract infection due to chronic zamudio catheter * Labs indicate a diagnosis of (please specify) * Other (please specify) * Unable to determine Use of terms such as suspected, likely, concern for, or probable (associated with a specific diagnosis that is being evaluated, monitored, or treated as if it exists) are acceptable and can be coded in the inpatient setting, when documented at the time of discharge. Thank you, Areli Naik [facility], CDIS Extension: [phone] Please use your independent medical judgment in providing your response. THIS QUERY IS PART OF THE PERMANENT MEDICAL RECORD Provider Response: Other Other Diagnosis: to be determined
[2020-12-26 11:56] VITALS: BP 180/70; PULSE 76; RESP 16; TEMP 36.5; O2SAT 97
--- NOTE | 2020-12-26 12:12 | HO.PM.IMPN ---
Subjective Subjective Date of Service: 12/26/20 Interval History: cc: syncopal episode interval history: no further episodes, no acitve compalints Cardiovascular Cardiovascular: Reports no additional cardiovascular complaints Respiratory Respiratory: Reports no additional respiratory complaints Physical Exam Vital Signs: Vital Signs: Last Vital Signs Temp 97.7 F 12/26/20 11:56 Pulse 76 12/26/20 11:56 Resp 16 12/26/20 11:56 BP 180/70 H 12/26/20 11:56 Pulse Ox 97 12/26/20 11:56 Body Mass Index 37.8 General: AO X 3, no acute distress Resp: CTA bilateral, no accessory muscles used CVS: S1,S2,RRR GI: soft, non tender, non distended Neuro: dysarthria, left hemjiparesis Psych: appropriate affect, appropriate insight Objective Data Active Medications Acetaminophen (Acetaminophen 325 Mg Tablet) 650 mg PO Q4H PRN PRN Reason: PAIN/FEVER Last Admin: 12/25/20 20:35 Dose: 650 mg Documented by: URBANO Aspirin (Aspirin 81 Mg Tab.Chew) 81 mg PO DAILY [facility] Last Admin: 12/26/20 07:32 Dose: 81 mg Documented by: TEE Atorvastatin Calcium (Atorvastatin Calcium 40 Mg Tablet) 40 mg PO BEDTIME [facility] Last Admin: 12/25/20 21:19 Dose: 40 mg Documented by: URBANO Labetalol HCl (Labetalol Hcl 200 Mg Tablet) 300 mg PO TID [facility] Last Admin: 12/26/20 07:32 Dose: 300 mg Documented by: TEE Lisinopril (Lisinopril 40 Mg Tablet) 40 mg PO DAILY [facility]; Protocol Last Admin: 12/26/20 07:33 Dose: 40 mg Documented by: TEE Nifedipine (Nifedipine Er 90 Mg Tab.Er.24) 90 mg PO DAILY [facility]; Protocol Last Admin: 12/26/20 07:32 Dose: 90 mg Documented by: TEE Ondansetron HCl (Ondansetron Hcl 4 Mg/2 Ml Vial) 4 mg IVPUSH Q8H PRN PRN Reason: Nausea and Vomiting Pharmacy Consult (Consult Rx Perform Med Rec) 1 each MISCELLANE ONCE PRN PRN Reason: Consult order Sodium Chloride (0.9 % Sodium Chloride Flush 3 Ml Syringe) 3 ml IVFLUSH QSHIFT [facility] Last Admin: 12/26/20 07:33 Dose: Not Given Documented by: TEE Non-Admin Reason: IV Running Labs CBC & Chem 7: 12/26/20 05:27 12/26/20 05:27 Labs: Laboratory Results - last 24 hr 12/25/20 12/25/20 12/25/20 14:14 14:24 14:24 MCV 88.1 MCH 30.7 MCHC 34.9 RDW 13.3 Plt Count 135 L MPV 8.7 L Immature Gran % (Auto) 0.3 Neut % (Auto) 86.2 H Lymph % (Auto) 3.3 L [place] % (Auto) 9.7 Eos % (Auto) 0.4 Baso % (Auto) 0.1 Lymph # (Auto) 0.3 L [place] # (Auto) 0.9 Eos # (Auto) 0.0 Baso # (Auto) 0.0 Abs Immat Gran (auto) 0.03 Absolute Neuts (auto) 7.8 Absolute Nucleated RBC 0.000 Nucleated RBC % (auto) 0.0 Anion Gap 14 Estim Creat Clear Calc 69.2 Estimated GFR > 60 POC Glucose Random Glucose 111 Osmolality Lactic Acid Calcium 8.8 Magnesium 2.0 Total Bilirubin 0.4 Direct Bilirubin 0.2 AST 14 ALT 11 Alkaline Phosphatase 86 Troponin I High Sens Total Protein 6.7 Albumin 3.9 Urine Color Urine Appearance Urine pH Ur Specific [place] Urine Protein Urine Glucose (UA) Urine Ketones Urine Blood Urine Nitrite Ur Leukocyte Esterase Urine RBC Urine WBC Ur Squamous Epith Cells Calcium Oxalate Crystal Uric Acid Crystals Amorphous Sediment Urine Bacteria Urine Mucus Urine Osmolality Ur Random Sodium Urine Creatinine COVID-19 (LUIS) Negative COVID-19 Clin Com See Note 12/25/20 12/25/20 12/25/20 14:24 14:24 14:24 MCV MCH MCHC RDW Plt Count MPV Immature Gran % (Auto) Neut % (Auto) Lymph % (Auto) [place] % (Auto) Eos % (Auto) Baso % (Auto) Lymph # (Auto) [place] # (Auto) Eos # (Auto) Baso # (Auto) Abs Immat Gran (auto) Absolute Neuts (auto) Absolute Nucleated RBC Nucleated RBC % (auto) Anion Gap Estim Creat Clear Calc Estimated GFR POC Glucose Random Glucose Osmolality 267 L Lactic Acid 0.9 Calcium Magnesium Total Bilirubin Direct Bilirubin AST ALT Alkaline Phosphatase Troponin I High Sens 37.7 H* Total Protein Albumin Urine Color Urine Appearance Urine pH Ur Specific [place] Urine Protein Urine Glucose (UA) Urine Ketones Urine Blood Urine Nitrite Ur Leukocyte Esterase Urine RBC Urine WBC Ur Squamous Epith Cells Calcium Oxalate Crystal Uric Acid Crystals Amorphous Sediment Urine Bacteria Urine Mucus Urine Osmolality Ur Random Sodium Urine Creatinine COVID-19 (LUIS) COVID-19 Clin Com 12/25/20 12/25/20 12/25/20 15:32 15:41 15:41 MCV MCH MCHC RDW Plt Count MPV Immature Gran % (Auto) Neut % (Auto) Lymph % (Auto) [place] % (Auto) Eos % (Auto) Baso % (Auto) Lymph # (Auto) [place] # (Auto) Eos # (Auto) Baso # (Auto) Abs Immat Gran (auto) Absolute Neuts (auto) Absolute Nucleated RBC Nucleated RBC % (auto) Anion Gap Estim Creat Clear Calc Estimated GFR POC Glucose 107 Random Glucose Osmolality Lactic Acid Calcium Magnesium Total Bilirubin Direct Bilirubin AST ALT Alkaline Phosphatase Troponin I High Sens Total Protein Albumin Urine Color DK YELLOW Urine Appearance CLOUDY Urine pH 8.5 H Ur Specific [place] 1.010 Urine Protein TRACE Urine Glucose (UA) NEG Urine Ketones NEG Urine Blood NEG Urine Nitrite NEG Ur Leukocyte Esterase 3+ H Urine RBC 0 Urine WBC 10-14 H Ur Squamous Epith Cells TRACE Calcium Oxalate Crystal 1+ Uric Acid Crystals 2+ Amorphous Sediment 3+ Urine Bacteria 3+ Urine Mucus TRACE Urine Osmolality Ur Random Sodium < 20.0 Urine Creatinine 55.56 COVID-19 (LUIS) COVID-19 Clin Com 12/25/20 12/25/20 12/26/20 15:41 17:50 05:27 MCV 87.8 MCH 30.2 MCHC 34.4 RDW 13.6 Plt Count 135 L MPV 8.9 L Immature Gran % (Auto) 0.3 Neut % (Auto) 84.6 H Lymph % (Auto) 3.1 L [place] % (Auto) 11.0 Eos % (Auto) 0.9 Baso % (Auto) 0.1 Lymph # (Auto) 0.2 L [place] # (Auto) 0.8 Eos # (Auto) 0.1 Baso # (Auto) 0.0 Abs Immat Gran (auto) 0.02 Absolute Neuts (auto) 6.4 Absolute Nucleated RBC 0.000 Nucleated RBC % (auto) 0.0 Anion Gap Estim Creat Clear Calc Estimated GFR POC Glucose Random Glucose Osmolality Lactic Acid Calcium Magnesium Total Bilirubin Direct Bilirubin AST ALT Alkaline Phosphatase Troponin I High Sens 34.9 Total Protein Albumin Urine Color Urine Appearance Urine pH Ur Specific [place] Urine Protein Urine Glucose (UA) Urine Ketones Urine Blood Urine Nitrite Ur Leukocyte Esterase Urine RBC Urine WBC Ur Squamous Epith Cells Calcium Oxalate Crystal Uric Acid Crystals Amorphous Sediment Urine Bacteria Urine Mucus Urine Osmolality 421 Ur Random Sodium Urine Creatinine COVID-19 (LUIS) COVID-19 [employer] Com 12/26/20 05:27 MCV MCH MCHC RDW Plt Count MPV Immature Gran % (Auto) Neut % (Auto) Lymph % (Auto) [place] % (Auto) Eos % (Auto) Baso % (Auto) Lymph # (Auto) [place] # (Auto) Eos # (Auto) Baso # (Auto) Abs Immat Gran (auto) Absolute Neuts (auto) Absolute Nucleated RBC Nucleated RBC % (auto) Anion Gap 13 Estim Creat Clear Calc 73.3 Estimated GFR > 60 POC Glucose Random Glucose 131 H Osmolality Lactic Acid Calcium 9.0 Magnesium Total Bilirubin Direct Bilirubin AST ALT Alkaline Phosphatase Troponin I High Sens Total Protein Albumin Urine Color Urine Appearance Urine pH Ur Specific [place] Urine Protein Urine Glucose (UA) Urine Ketones Urine Blood Urine Nitrite Ur Leukocyte Esterase Urine RBC Urine WBC Ur Squamous Epith Cells Calcium Oxalate Crystal Uric Acid Crystals Amorphous Sediment Urine Bacteria Urine Mucus Urine Osmolality Ur Random Sodium Urine Creatinine COVID-19 (LUIS) COVID-19 Clin Com Microbiology Microbiology Results: Microbiology 12/25/20 Unknown Urine Culture - Final Urine clean catch - Clean Catch Midstream Assessment and Plan (1) Hyponatremia: Status: Acute (2) Syncope: Status: Acute Assessment and Plan: 75-year-old male with history of CVA with left hemiplegia, dementia, hypertension on thiazide and Aldactone [facility] Found to be unresponsive for approximately 1 minute without obvious seizure activities.? In the emergency room CT scan of the head was negative for acute pathology; sodium was 124 Hyponatremia holding HCTZ dc hypotonic fluids check repeat bmp follow up nephro Syncope no events on tele Hypertension ?nifedipine labetolol history of cva with left hemiparesis asa, statin dvt prophylaxis - lovenox Quality Stroke Does the patient have a stroke diagnosis?: No VTE Prior VTE?: No VTE Risk Level:: Medical - moderate - high VTE Device Contraindication: Treatment Not Indicated VTE Drug Contraindication: N/A - Med Ordered
[2020-12-26 12:36] LABS: Anion Gap 13 (12-20); Blood Urea Nitrogen 24 mg/dL (9-16); Calcium 8.9 mg/dL (8.4-10.2); Carbon Dioxide 23 mmol/L (22-29); Chloride 92 mmol/L (96-108); Creatinine Clr Calc Pharmacy 70.5; Estimated Glomerular Filt Rate > 60; Glucose Random 149 mg/dL (60-115); Potassium 3.8 mmol/L (3.3-5.1); Sodium 124 mmol/L (135-145)
[2020-12-26] MEDS: Enoxaparin Sodium 40 MG/0.4 ML SYRINGE SUBCUT (12:48)
--- NOTE | 2020-12-26 13:24 | MHC.CM.PN ---
M ATTEMPTED TO CONTACT PT'S HCP MAYDA SWENSON AT 1:02PM [phone] TO REVIEW IMM AND REVIEW PT'S INFORMATION HOWEVER VOICEMAIL IS NOT SET UP, CM WILL REVISIT LATER TODAY, PER RECORDS AND [facility] PT IS IN LTC AND A BED HOLD, PLAN FOR PT TO RETURN ONCE MEDICALLY CLEARED. CM ATTEMPTED TO MEET W/PT HOWEVER PT UNABLE TO ANSWER QUESTIONS D/T DEMENTIA/CONFUSION, CM WILL CONT TO FOLLOW D/C NEEDS. D/C PLAN: RETURN TO [facility] FOR LTC, [facility] FOR BLS TRANSPORT.
--- NOTE | 2020-12-26 13:39 | MHC.CM.PN ---
CM WAS ABLE TO REACH PT'S HCP MAYDA Velez AT 1:32PM [phone], IMM REVIEWED AND WILL BE EMAILED, HCP REQUESTING CALL FROM HOSPITALIST FOR UPDATE AND UPSET SNF DID NOT CALL TO TELL HER PT WAS BEING SENT TO ED. CM WILL LET SNF KNOW SHE WOULD LIKE TO BE CALLED AND MESSAGE HOSPITALIST W/REQUEST. HCP WOULD LIKE FOR PT TO GO BACK TO [facility] ONCE READY FOR D/C.
--- NOTE | 2020-12-26 14:04 | PC.NURSE ---
Skin assessment completed. No open areas found. Slight blanchable redness to buttocks. No other skin issues noted at this time.
--- NOTE | 2020-12-26 15:15 | PC.NURSE ---
pt's zamudio leaking around meatus , not draining. Attempted to adjust position without effect. by end if shift no leakage was noted also no urine in bag. bladder scanned for >999. cath was removed, bleeding and small clots noted. new cath placed which drainded 2900, foul smelling aura urine followed by purulent drainage.
[2020-12-26 15:44] VITALS: BP 178/84; PULSE 89; RESP 18; TEMP 36.7; O2SAT 98
[2020-12-26] MEDS: Urea 15 GM POWDER PO (17:06)
[2020-12-26] MEDS: 0.9 % Sodium Chloride Flush 3 ML SYRINGE IVFLUSH ×2 (17:06→21:58)
[2020-12-26] MEDS: cefTRIAXone sodium 1 GM in 0.9 % Sodium Chloride 50 ML IV (17:06)
[2020-12-26 17:48] LABS: Uric Acid 5.3 mg/dL (3.4-7.0)
[2020-12-26 18:55] LABS: Appearance Urine CLOUDY; Color Urine DK YELLOW; Glucose Urine UA NEG (NEG); Leukocyte Esterase Urine 2+ (NEG); Nitrite Urine NEG (NEG); PH 7.5 (5.0-8.0); Specific Gravity - Urine 1.015 (1.005-1.025); UACC Culture Trigger YES; Urine Blood 3+ (NEG); Urine Ketones NEG (NEG); Urine Protein 2+ MG/DL (NEG-TRACE)
[2020-12-26 19:07] LABS: Amorphous Sediment Urine 4+ /LPF; Bacteria Urine TRACE /LPF; RBC Urine TNTC /HPF (0); Squamous Epithelial Cell Urine TRACE /LPF; UACC CULT YES
[2020-12-26 19:08] LABS: Triple Phosphate Crystal Urine TRACE /LPF
[2020-12-26 19:34] VITALS: BP 136/60; PULSE 94; RESP 18; TEMP 37.8; O2SAT 96
[2020-12-26 20:30] LABS: Anion Gap 11 (12-20); Blood Urea Nitrogen 37 mg/dL (9-16); Calcium 8.2 mg/dL (8.4-10.2); Carbon Dioxide 26 mmol/L (22-29); Chloride 93 mmol/L (96-108); Creatinine Clr Calc Pharmacy 68.6; Estimated Glomerular Filt Rate > 60; Glucose Random 148 mg/dL (60-115); Potassium 3.6 mmol/L (3.3-5.1); Sodium 126 mmol/L (135-145)
[2020-12-26] MEDS: Sodium Chloride Tab 1 GM TABLET 2 GM PO (21:57)
[2020-12-26] MEDS: Atorvastatin Calcium 40 MG TABLET PO (21:57)
[2020-12-27] VITALS (8 sets, daily range): BP systolic 136–181; BP diastolic 59–100; PULSE 67–75; RESP 15–18; TEMP 36.2–36.8; O2SAT 92–97
[2020-12-27 08:06] LABS: Hematocrit 29.1 % (42-52); Mean Corpuscular HGB Conc 34.4 g/dl (31.0-36.0); Mean Corpuscular Volume 87.4 fL (80-98); Mean Platelet Volume 8.9 fL (9.4-12.4); Platelet Count 132 X10*3/uL (160-400); Red Blood Count 3.33 X10*6/uL (4.60-5.80); Red Cell Distribution Width 13.5 % (11.0-16.0); White Blood Count 8.7 X10*3/uL (4.8-10.8)
[2020-12-27 08:23] LABS: Anion Gap 10 (12-20); Blood Urea Nitrogen 33 mg/dL (9-16); Calcium 8.6 mg/dL (8.4-10.2); Carbon Dioxide 26 mmol/L (22-29); Chloride 97 mmol/L (96-108); Creatinine Clr Calc Pharmacy 75.6; Estimated Glomerular Filt Rate > 60; Glucose Fasting 104 mg/dL (60-99); Potassium 3.8 mmol/L (3.3-5.1); Sodium 129 mmol/L (135-145)
[2020-12-27 08:44] LABS: TSH reflex Free T4 1.14 uIU/mL (0.32-4.0)
[2020-12-27 08:51] LABS: Cortisol Random 15.7 ug/dL
[2020-12-27] MEDS: NIFEdipine ER 90 MG TAB.ER.24 PO (09:33)
[2020-12-27] MEDS: 0.9 % Sodium Chloride Flush 3 ML SYRINGE IVFLUSH ×3 (09:33→23:49)
[2020-12-27] MEDS: lisinopriL 40 MG TABLET PO (09:33)
[2020-12-27] MEDS: Labetalol HCL 200 MG TABLET 300 MG PO ×3 (09:33→21:08)
[2020-12-27] MEDS: Sodium Chloride Tab 1 GM TABLET 2 GM PO ×3 (09:34→21:08)
[2020-12-27] MEDS: Aspirin 81 MG TAB.CHEW PO (09:34)
[2020-12-27] MEDS: Urea 15 GM POWDER PO (11:11)
[2020-12-27] MEDS: Enoxaparin Sodium 40 MG/0.4 ML SYRINGE SUBCUT (11:12)
--- NOTE | 2020-12-27 12:41 | CONS_ITS ---
DATE OF SERVICE: 12/26/2020 REASON FOR CONSULTATION: I was asked to see the patient to assist in evaluation and management of patient's hyponatremia as reflected by serum sodium of 124 yesterday on admission, actually early this morning it is up to 125, now he was actually on half-normal saline overnight. HISTORY OF PRESENT ILLNESS: In summary, the patient is a 75-year-old gentleman with a history of dementia; stroke with left-sided weakness and aphasia; seizure disorder, on primidone; and chronic indwelling Nair along with hypertension; hyperlipidemia; had an episode of unresponsiveness at the care home. Details of it are unclear and the patient is not able to provide any information. In the emergency room, he had labs done which showed a serum sodium of 124, hence current consultation. PAST MEDICAL HISTORY: Again is notable for aphasia, BPH, dysphagia, seizure disorder, hemiparesis, mention made of a neurogenic bladder, unsteady gait and dementia that is described as vascular in nature. MEDICATIONS: On admission included aspirin, Lipitor, hydrochlorothiazide, labetalol, lisinopril, nifedipine, potassium, and spironolactone. His current medications include Lipitor, labetalol, lisinopril, nifedipine, aspirin, Lovenox. SOCIAL HISTORY: Unable to obtain social history. REVIEW OF SYSTEMS: Unobtainable. FAMILY HISTORY: Unobtainable. PHYSICAL EXAMINATION: VITAL SIGNS: Blood pressure 170/80 with heart rate in the 80s. HEAD: Atraumatic, normocephalic. NECK: Supple. Mucous membranes are moist. LUNGS: Breath sounds bilaterally. CARDIAC: Regular rate. ABDOMEN: Soft. EXTREMITIES: No edema. LABORATORY DATA: From noon today show sodium 124, potassium 3.8, chloride 92, bicarb 23, BUN 24, creatinine 1.05. As mentioned, on admission, serum sodium was 124. Hemoglobin 10.4, hematocrit 30.2, white blood cell count 7.5. Urine studies show specific gravity of 1.10, urine osmolality 421. Urine sodium was 20. Chest x-ray was negative. Head CT showed no acute intracranial process. IMPRESSION: Euvolemic hyponatremia in a patient who is on thiazide diuretic and recently had an episode of unresponsiveness. 1. Euvolemic hyponatremia. Most likely, his hyponatremia is due to the hydrochlorothiazide, which has a high incidence of causing hyponatremia. The hydrochlorothiazide does 2 things, 1, it increases distal sodium delivery, and 2, it does not washout the medullary concentration gradient which sets up a situation that patients can develop hyponatremia. His urine studies do not completely support this because urine sodium is less than 20. Nonetheless, it is still suspicious that the thiazide diuretics playing a significant role in the development of the hyponatremia. He does not clinically appear to be hypovolemic in fact his blood pressure is on the high side, which would go against this. SUGGESTIONS: At this time include continue to track lytes q.8 hours. We will give him 1 dose of urea to try and increase water diuresis through the osmotic effect of urea and serum on salt tablets and continue p.o. fluid restriction. Depending on his clinical course, we may need to try other interventions including possibly giving him normal saline. He did get normal saline overnight and his sodium did not improve. We will follow the patient closely. Also, I added on a uric acid level to the previous labs and we will check an a.m. TSH and cortisol level as part of the workup. MD SHANI Stein/EMEKA / [id number]
--- NOTE | 2020-12-27 13:01 | HO.PM.IMPN ---
Subjective Subjective Date of Service: 12/27/20 Interval History: cc: syncopal episode interval history: no active complaints, no further episodes Cardiovascular Cardiovascular: Reports no additional cardiovascular complaints Respiratory Respiratory: Reports no additional respiratory complaints Physical Exam Vital Signs: Vital Signs: Last Vital Signs Temp 97.3 F 12/27/20 12:00 Pulse 67 12/27/20 12:00 Resp 17 12/27/20 12:00 BP 136/59 L 12/27/20 12:00 Pulse Ox 92 12/27/20 12:00 Body Mass Index 37.8 General: AO X 3, no acute distress Resp:? CTA bilateral, no accessory muscles used CVS: S1,S2,RRR GI: soft, non tender, non distended Neuro:? dysarthria, left hemiparesis Psych: appropriate affect, appropriate insight? Objective Data Active Medications Acetaminophen (Acetaminophen 325 Mg Tablet) 650 mg PO Q4H PRN PRN Reason: PAIN/FEVER Last Admin: 12/25/20 20:35 Dose: 650 mg Documented by: URBANO Aspirin (Aspirin 81 Mg Tab.Chew) 81 mg PO DAILY [facility] Last Admin: 12/27/20 09:34 Dose: 81 mg Documented by: TEE Atorvastatin Calcium (Atorvastatin Calcium 40 Mg Tablet) 40 mg PO BEDTIME [facility] Last Admin: 12/26/20 21:57 Dose: 40 mg Documented by: XI Enoxaparin Sodium (Enoxaparin Sodium 40 Mg/0.4 Ml Syringe) 40 mg SUBCUT Q24H [facility] Last Admin: 12/27/20 11:12 Dose: 40 mg Documented by: TEE Ceftriaxone Sodium 1 gm/ (Sodium Chloride) 50 mls @ 100 mls/hr IV Q24H [facility] Last Infusion: 12/26/20 17:42 Dose: 0 mls/hr Documented by: JUANJO Labetalol HCl (Labetalol Hcl 200 Mg Tablet) 300 mg PO TID [facility] Last Admin: 12/27/20 09:33 Dose: 300 mg Documented by: TEE Lisinopril (Lisinopril 40 Mg Tablet) 40 mg PO DAILY [facility]; Protocol Last Admin: 12/27/20 09:33 Dose: 40 mg Documented by: TEE Nifedipine (Nifedipine Er 90 Mg Tab.Er.24) 90 mg PO DAILY [facility]; Protocol Last Admin: 12/27/20 09:33 Dose: 90 mg Documented by: TEE Ondansetron HCl (Ondansetron Hcl 4 Mg/2 Ml Vial) 4 mg IVPUSH Q8H PRN PRN Reason: Nausea and Vomiting Pharmacy Consult (Consult Rx Perform Med Rec) 1 each MISCELLANE ONCE PRN PRN Reason: Consult order Sodium Chloride (0.9 % Sodium Chloride Flush 3 Ml Syringe) 3 ml IVFLUSH QSHIFT [facility] Last Admin: 12/27/20 09:33 Dose: 3 ml Documented by: TEE Sodium Chloride (Sodium Chloride Tab 1 Gm Tablet) 2 gm PO TID [facility] Last Admin: 12/27/20 09:34 Dose: 2 gm Documented by: TEE Labs CBC & Chem 7: 12/27/20 07:50 12/27/20 07:50 Labs: Laboratory Results - last 24 hr 12/26/20 12/26/20 12/26/20 12:02 18:41 19:56 MCV MCH MCHC RDW Plt Count MPV Absolute Nucleated RBC Nucleated RBC % (auto) Anion Gap 11 L Estim Creat Clear Calc 68.6 Estimated GFR > 60 Random Glucose 148 H Fasting Glucose Uric Acid 5.3 Calcium 8.2 L D TSH Random Cortisol Urine Color DK YELLOW Urine Appearance CLOUDY Urine pH 7.5 Ur Specific [place] 1.015 Urine Protein 2+ H Urine Glucose (UA) NEG Urine Ketones NEG Urine Blood 3+ H Urine Nitrite NEG Ur Leukocyte Esterase 2+ H Urine RBC TNTC H Urine WBC 10-14 H Ur Squamous Epith Cells TRACE Triple Phos Crystals TRACE Amorphous Sediment 4+ Urine Bacteria TRACE 12/27/20 12/27/20 12/27/20 07:50 07:50 07:50 MCV 87.4 MCH 30.0 MCHC 34.4 RDW 13.5 Plt Count 132 L MPV 8.9 L Absolute Nucleated RBC 0.000 Nucleated RBC % (auto) 0.0 Anion Gap 10 L Estim Creat Clear Calc 75.6 Estimated GFR > 60 Random Glucose Fasting Glucose 104 H Uric Acid Calcium 8.6 TSH 1.14 Random Cortisol 15.7 Urine Color Urine Appearance Urine pH Ur Specific [place] Urine Protein Urine Glucose (UA) Urine Ketones Urine Blood Urine Nitrite Ur Leukocyte Esterase Urine RBC Urine WBC Ur Squamous Epith Cells Triple Phos Crystals Amorphous Sediment Urine Bacteria Microbiology Microbiology Results: Microbiology 12/25/20 14:25 Blood Culture - Preliminary Blood - Venous No growth after 24 hours. 12/25/20 14:23 Blood Culture - Preliminary Blood - Venous No growth after 24 hours. 12/25/20 Unknown Urine Culture - Final Urine clean catch - Clean Catch Midstream Assessment and Plan (1) Hyponatremia: Status: Acute (2) Syncope: Status: Acute Assessment and Plan: 75-year-old male with history of CVA with left hemiplegia, dementia, hypertension on thiazide and Aldactone presents with questionable syncopal episode from residential.? Found to be unresponsive for approximately 1 minute without obvious seizure activities.? In the emergency room CT scan of the head was negative for acute pathology; sodium was 124 Hyponatremia holding HCTZ improved to 129 this AM, rate appropriate received urea 15gm on 12/26, will get another dose today continue salt tablets continue to monitor nephro following urine retention chronic zamudio was clogged, replaced, appeared purulent, empiric rocephin Syncope no events on tele Hypertension ?nifedipine labetolol history of cva with left hemiparesis asa, statin dvt prophylaxis - lovenox Quality Stroke Does the patient have a stroke diagnosis?: No VTE Prior VTE?: No VTE Risk Level:: Medical - moderate - high VTE Device Contraindication: Treatment Not Indicated VTE Drug Contraindication: N/A - Med Ordered
[2020-12-27] MEDS: cefTRIAXone sodium 1 GM in 0.9 % Sodium Chloride 50 ML IV (16:18)
--- NOTE | 2020-12-27 18:17 | PM.PNNEP ---
Subjective Subjective Date of Service: 12/27/20 Principal diagnosis: hypona Interval history: Seen and examined, events noted Physical Exam Vital Signs: Vital Signs: Last Vital Signs Temp 97.2 F 12/27/20 15:42 Pulse 68 12/27/20 15:42 Resp 15 12/27/20 15:42 BP 181/79 H 12/27/20 15:42 Pulse Ox 94 12/27/20 15:42 Body Mass Index 37.8 Const: Other: Awake alert confused. Will answer in 1-2 word responses. No acute distress General: alert Orientation/consciousness: oriented to person and oriented to place Limitations: no limitations HENMT: Other: Membranes dry oropharynx clear Head: Yes normal to inspection Ears: hearing grossly normal bilaterally and TM's normal bilaterally General nose exam: Normal external nose present Face and sinus: Yes normal facial exam Mouth: Normal oral and palatal mucosa present Throat: Yes posterior oropharynx normal, Yes tonsils normal and Yes uvula midline Eyes: General: appearance normal, both eyes and all related structures Pupils: Equal, round and reactive pupils present Neck: Neck: Yes normal visual inspection Chest: Chest palpation & inspection: normal inspection of the chest Resp: Other: Clear to auscultation all quiñones without rales rubs or rhonchi Effort & Inspection: normal respiratory effort Auscultation: clear to auscultation bilaterally Cardio: Other: No S4; positive S1-S2; no S3-S4 murmurs rubs gallops Rate: regular rate Rhythm: regular rhythm Peripheral pulses: Peripheral pulses 2+ throughout GI: Other: Soft nontender nondistended with normoactive bowel sounds. There is no rebound tenderness Inspection: Yes normal to inspection Palpation (GI): Soft to palpation and nontender Auscultation: normal bowel sounds Back/Spine/Pelvis: Thoracic/Lumbar Spine: thoracic and lumbar spine normal to inspection Skin: General skin exam: no rashes or lesions noted Neuro: Other: Left hemiparesis; moves right side with purpose General: oriented to person, oriented to place, moves all extremities, normal sensation to monofilament and Unable to assess gait (pt non ambulatory at baseline-WC bound ) Cranial nerves: Yes CN's II-XII intact bilaterally, Yes Equal, round and reactive pupils present, Yes Bilaterally intact EOM present, Yes Nystagmus not present, Yes Normal facial strength present and Yes Midline tongue present Speech: No Abnormal speech present Gait exam (Neuro): Unable to assess gait (pt non ambulatory at baseline-WC bound ) Motor exam (neuro): 5/5 motor strength present throughout Sensory Exam: Normal double simultaneous stimulation for sensation Extrem: Other: Bilateral edema General: Yes normal to inspection Objective Data Labs CBC & Chem 7: 12/27/20 07:50 12/27/20 07:50 Labs: Laboratory Results - last 24 hr 12/26/20 12/26/20 12/27/20 18:41 19:56 07:50 WBC 8.7 RBC 3.33 L Hgb 10.0 L Hct 29.1 L MCV 87.4 MCH 30.0 MCHC 34.4 RDW 13.5 Plt Count 132 L MPV 8.9 L Absolute Nucleated RBC 0.000 Nucleated RBC % (auto) 0.0 Sodium 126 L Potassium 3.6 Chloride 93 L Carbon Dioxide 26 Anion Gap 11 L BUN 37 H D Creatinine 1.08 Estim Creat Clear Calc 68.6 Estimated GFR > 60 Random Glucose 148 H Fasting Glucose Calcium 8.2 L D TSH Random Cortisol Urine Color DK YELLOW Urine Appearance CLOUDY Urine pH 7.5 Ur Specific [place] 1.015 Urine Protein 2+ H Urine Glucose (UA) NEG Urine Ketones NEG Urine Blood 3+ H Urine Nitrite NEG Ur Leukocyte Esterase 2+ H Urine RBC TNTC H Urine WBC 10-14 H Ur Squamous Epith Cells TRACE Triple Phos Crystals TRACE Amorphous Sediment 4+ Urine Bacteria TRACE 12/27/20 12/27/20 07:50 07:50 WBC RBC Hgb Hct MCV MCH MCHC RDW Plt Count MPV Absolute Nucleated RBC Nucleated RBC % (auto) Sodium 129 L Potassium 3.8 Chloride 97 Carbon Dioxide 26 Anion Gap 10 L BUN 33 H Creatinine 0.98 Estim Creat Clear Calc 75.6 Estimated GFR > 60 Random Glucose Fasting Glucose 104 H Calcium 8.6 TSH 1.14 Random Cortisol 15.7 Urine Color Urine Appearance Urine pH Ur Specific [place] Urine Protein Urine Glucose (UA) Urine Ketones Urine Blood Urine Nitrite Ur Leukocyte Esterase Urine RBC Urine WBC Ur Squamous Epith Cells Triple Phos Crystals Amorphous Sediment Urine Bacteria Microbiology Microbiology Results: Microbiology 12/25/20 14:25 Blood - Venous Blood Culture - Preliminary No growth after 48 hours. 12/25/20 14:23 Blood - Venous Blood Culture - Preliminary No growth after 48 hours. 12/25/20 Unknown Urine clean catch - Clean Catch Midstream Urine Culture - Final Procedures Date of Service Date of Service: 12/27/20 Assessment & Plan Assessment and plan (1) Hyponatremia: Start date: 12/27/20 Start time: 18:20 Status: Acute (2) Syncope: Status: Acute Assessment and Plan: Euvolemic HypoNa: most c/w HCTZ effect with SNa grad incr from 124 to 125 to 129this am HTN REC: cont po Urea and salt tablets to day and reassess tomorrow; avoid HCTZ; may need to incr BP meds--add loop diuretic if BP still elevated Time Spent With Patient Time: Total time spent is greater than 50% in coordination of care (as documented) at patient's floor/unit and/or counseling patient: Progress Note: Quality Stroke Does the patient have a stroke diagnosis?: No
[2020-12-27] MEDS: Atorvastatin Calcium 40 MG TABLET PO (21:08)
[2020-12-28 03:33] VITALS: BP 121/77; PULSE 75; RESP 17; TEMP 36.8; O2SAT 97
[2020-12-28 05:48] LABS: Hematocrit 27.3 % (42-52); Hemoglobin 9.3 g/dl (14.0-18.0); Mean Corpuscular HGB Conc 34.1 g/dl (31.0-36.0); Mean Corpuscular Hemoglobin 29.7 pg (27.0-33.0); Mean Corpuscular Volume 87.2 fL (80-98); Mean Platelet Volume 9.2 fL (9.4-12.4); Platelet Count 144 X10*3/uL (160-400); Red Blood Count 3.13 X10*6/uL (4.60-5.80); Red Cell Distribution Width 13.3 % (11.0-16.0); White Blood Count 5.2 X10*3/uL (4.8-10.8)
[2020-12-28 06:08] LABS: Anion Gap 13 (12-20); Blood Urea Nitrogen 31 mg/dL (9-16); Calcium 8.8 mg/dL (8.4-10.2); Carbon Dioxide 26 mmol/L (22-29); Chloride 102 mmol/L (96-108); Creatinine Clr Calc Pharmacy 87.1; Estimated Glomerular Filt Rate > 60; Glucose Fasting 105 mg/dL (60-99); Potassium 3.8 mmol/L (3.3-5.1); Sodium 137 mmol/L (135-145)
[2020-12-28 08:00] VITALS: BP 190/88; PULSE 73; RESP 18; TEMP 36.9; O2SAT 95
--- NOTE | 2020-12-28 09:04 | P.DS_ITS ---
DS: Providers Provider Date of Service: 12/28/20 Date of admission: 12/25/20 16:47 Primary care physician: Gabriella Kemp MD Consults: 12/26/20 08:13 Consult to Nephrology Routine Consulting Provider: Gama Peck Reason for consultation: hyponatremia DS: Diagnosis Discharge Diagnosis (1) Hyponatremia: Status: Acute (2) Syncope: Status: Acute DS: Summary Hospital Course Hospital Course: patient was admitted for questionable syncopal episode. no events on tele, exact etiology unclear. noted by hyponatremic to 124. was seen by nephro who re commended stopping hctz, given 2 doses urea 15gm, salt tablets. sodium improved at appropriate rate to 137 at time of discharge. course complicated by urinary retention due to obstructed chronic zamudio, this was successfully exchanged, he was given empiric rocephin, but cultures have been negative so antibiotics will be discontinued. patient now medically stable, will be discharged back to SNF. Time Spent with Patient Time attestation: Total time spent providing and/or coordinating discharge services: Discharge coordination time: Greater than 30 minutes Quality: Stroke Does the patient have a stroke diagnosis?: No Physical Exam Vital Signs: Vital Signs: Last Vital Signs Temp 98.5 F 12/28/20 08:00 Pulse 73 12/28/20 08:00 Resp 18 12/28/20 08:00 BP 190/88 H 12/28/20 08:00 Pulse Ox 95 12/28/20 08:00 Body Mass Index 37.8 General: AO X 3, no acute distress Resp:? CTA bilateral, no accessory muscles used CVS: S1,S2,RRR GI: soft, non tender, non distended Neuro:? dysarthria, left hemiparesis Psych: appropriate affect, appropriate insight? DS: Data Data Completed and Pending Labs on day of discharge: Laboratory Results - last 24 hr 12/28/20 12/28/20 05:20 05:20 WBC 5.2 RBC 3.13 L Hgb 9.3 L Hct 27.3 L MCV 87.2 MCH 29.7 MCHC 34.1 RDW 13.3 Plt Count 144 L MPV 9.2 L Absolute Nucleated RBC 0.000 Nucleated RBC % (auto) 0.0 Sodium 137 Potassium 3.8 Chloride 102 Carbon Dioxide 26 Anion Gap 13 BUN 31 H Creatinine 0.85 Estim Creat Clear Calc 87.1 Estimated GFR > 60 Fasting Glucose 105 H Calcium 8.8 Preliminary micro results at discharge 12/25/20 14:25 Blood Culture - Preliminary Blood - Venous No growth after 48 hours. 12/25/20 14:23 Blood Culture - Preliminary Blood - Venous No growth after 48 hours. Discharge Plan Discharge Patient Disposition: er [facility] Discharge Diagnosis: hyponatremia, syncope Referrals: Gabriella Kemp MD [Primary Care Provider] - 1 Week Discharge Medications: Continued atorvastatin 40 mg Tablet 40 mg PO BEDTIME RF: 0 sennosides [senna] 8.6 mg Tablet 17.2 mg PO BEDTIME RF: 0 acetaminophen 325 mg Tablet 650 mg PO Q4H PRN (Reason: PAIN/FEVER) RF: 0 nifedipine 90 mg Tablet Extended Release 24hr 90 mg PO DAILY RF: 0 aspirin 81 mg Tablet,Chewable 81 mg PO DAILY RF: 0 labetalol 300 mg Tablet 300 mg PO TID RF: 0 lisinopril 40 mg Tablet 40 mg PO DAILY RF: 0 docusate sodium 100 mg Tablet 100 mg PO BID RF: 0 spironolactone 50 mg Tablet 50 mg PO DAILY RF: 0 magnesium oxide 400 mg magnesium Tablet 400 mg PO DAILY RF: 0 Discontinued hydrochlorothiazide 25 mg Tablet 25 mg PO DAILY RF: 0 potassium chloride 20 mEq Tablet Extended Release 20 meq PO BEDTIME RF: 0 Discharge Orders: Discharge Order (Routine); Ordered 12/28/20 Ordered By: Joe Rivera Diet: advance to usual diet Activity on Discharge: As tolerated Stand Alone Forms: Patient Portal Discharge page Care Plan Goals: recovery Health Concerns: hyponatremia, syncope Plan of Treatment: stop hctz, potassium Assessment: see above
[2020-12-28 09:09] VITALS: BP 190/88; PULSE 73
[2020-12-28] MEDS: NIFEdipine ER 90 MG TAB.ER.24 PO (09:09)
[2020-12-28] MEDS: lisinopriL 40 MG TABLET PO (09:09)
[2020-12-28] MEDS: 0.9 % Sodium Chloride Flush 3 ML SYRINGE IVFLUSH (09:09)
[2020-12-28] MEDS: Labetalol HCL 200 MG TABLET 300 MG PO (09:10)
[2020-12-28] MEDS: Sodium Chloride Tab 1 GM TABLET 2 GM PO (09:10)
[2020-12-28] MEDS: Aspirin 81 MG TAB.CHEW PO (09:10)
--- NOTE | 2020-12-28 10:14 | MHC.CM.PN ---
pt to be dcd today at 11 to [facility] gisela pts hcp douglas notified of dc
[2020-12-28 11:25] LABS: COVID-19 Test Negative (Negative)
== END 2020-12-28 11:03 | disposition skilled nursing facility (03) | DRG 641 ==
LOC: HO.ED 16:18 → HO.EDOVER 17:23 → HO.S3 12-26 01:11
PROVIDERS: Internal Medicine Nephrology; Nurse Practitioner Family; Admitting Provider Hospitalist; Emergency Provider Emergency Medicine; PCP Internal Medicine; Visit Provider Internal Medicine
DX: E87.1 Hypo-osmolality and hyponatremia (principal); I69.854 Hemiplegia and hemiparesis following other cerebrovascular disease affecting left non-dominant side; T83.098A Other mechanical complication of other urinary catheter, initial encounter; I10 Essential (primary) hypertension; E78.5 Hyperlipidemia, unspecified; R33.9 Retention of urine, unspecified; I69.820 Aphasia following other cerebrovascular disease; F03.90 Unspecified dementia, unspecified severity, without behavioral disturbance, psychotic disturbance, mood disturbance, and anxiety; Z20.822 Contact with and (suspected) exposure to COVID-19; Z79.82 Long term (current) use of aspirin; Z79.899 Other long term (current) drug therapy
CPT/HCPCS: 36415; 70450; 71046; 80048; 80076; 81001; 81003; 82533; 82947; 83605; 83735; 83930; 83935; 84300; 84443; 84484; 84550; 85025; 85027; 87040; 87086; 87635; 93005; 99285; C1758; J0696; J1650